=== PATIENT | male | born 1960 | race Caucasian/White ===

== ENCOUNTER 2023-02-20 10:14 | Day surgery (SDC) | payer OTHER ==
[~2023-02-20] VITALS: Ht 177.8 cm; Wt 93.0 kg
[~2023-02-20 10:14] MED LIST: B-COTAB4 PO; CelecoXIB 400 MG CAP PO ONE; DULO1CAP4 PO; META28.32 PO; VITA100093 PO; ZINC50TA26 PO; ceFAZolin SOD 2 GM in IV 1 EA IV ONE
[2023-02-20] MEDS ORDERED: ROCURONIUM BROMIDE 50MG/5ML VIAL As Ordered ONE ×2 (10:18→11:43)
[2023-02-20] MEDS ORDERED: fentaNYL 100 MCG/2 ML INJECTION As Ordered ONE ×2 (10:18→11:46)
[2023-02-20] MEDS ORDERED: propofoL 200 MG/20 ML VIAL As Ordered ONE (10:18)
[2023-02-20] MEDS ORDERED: LIDOCAINE 2% 100MG/5ML SDV (FOR ANES.) As Ordered ONE (10:18)
[2023-02-20] MEDS ORDERED: MIDAZOLAM INJ 2MG/2ML VIAL As Ordered ONE (10:18)
[2023-02-20] MEDS ORDERED: LR 1,000 ML IV SCH ×2 (10:35→12:50)
[2023-02-20] MEDS ORDERED: LIDOCAINE 1% SDV 30ML VIAL As Ordered ONE (11:03)
[2023-02-20] MEDS ORDERED: ACETAMINOPHEN 1000MG 100ML IV BAG As Ordered ONE (11:37)
[2023-02-20] MEDS ORDERED: GLYCOPYRROLATE INJ 0.2 MG/ML 2 ML VIAL As Ordered ONE (11:40)
[2023-02-20] MEDS ORDERED: KETOROLAC 60MG 2ML VIAL As Ordered ONE (12:08)
[2023-02-20] MEDS ORDERED: SUGAMMADEX SODIUM 500 MG/5 ML VIAL (BRIDION) As Ordered ONE (12:08)
[2023-02-20] MEDS ORDERED: ONDANSETRON 4MG 2ML VIAL As Ordered ONE (12:08)
[2023-02-20] MEDS ORDERED: HYDROmorphone HCL 2MG/ML 1ML VIAL As Ordered ONE (12:27)
[2023-02-20] MEDS ORDERED: ONDANSETRON 4MG 2ML VIAL IV PRN (12:50)
[2023-02-20] MEDS ORDERED: fentaNYL 100 MCG/2 ML INJECTION IV PRN (12:50)
[2023-02-20] MEDS ORDERED: HYDROMORPHONE HCL 0.5 MG/ 0.5 ML SYRINGE IV PRN (12:50)
[2023-02-20] MEDS ORDERED: oxyCODONE 5MG TAB PO PRN (12:50)
[2023-02-20] MEDS ORDERED: NORCO, ANEXSIA 5/325MG TABLET (HYDROcodone/ACETAMINOPHEN) PO PRN ×2 (13:25)
[2023-02-20 14:25] VITALS: BP 129/80; TEMP 97; O2SAT 95
[2023-02-20] MEDS ORDERED: KETOROLAC 30 MG/ML 1ML VIAL IV SCH (19:00)
== END 2023-02-20 14:30 | disposition home or self-care (01) ==
LOC: M SDC 10:14
PROVIDERS: ATTEND Surgery
DX: K40.90 Unilateral inguinal hernia, without obstruction or gangrene, not specified as recurrent (principal); K50.90 Crohn's disease, unspecified, without complications; K21.9 Gastro-esophageal reflux disease without esophagitis; J45.909 Unspecified asthma, uncomplicated; Z79.899 Other long term (current) drug therapy; F32.A Depression, unspecified; Z88.1 Allergy status to other antibiotic agents
CPT/HCPCS: 49650; 88304; 93005; C1781; J0131; J0665; J1100; J1170; J1885; J2250; J2405; J3010; S2900